=== PATIENT | male | born 1990 | race Caucasian/White ===

== ENCOUNTER 2019-03-20 17:51 | Emergency (ER) | payer OTHER ==
--- NOTE | 2019-03-20 19:47 | EDPHY ---
H & P Time Seen by Provider: 03/20/19 19:17 HPI/ROS: CHIEF COMPLAINT: Left knee pain HISTORY OF PRESENT ILLNESS: Patient is a 28-year-old male presents emergency department left knee pain. Patient was snowboarding on Wednesday when he fell. He significantly twisted his left knee. This torqued his lower leg. He now has moderate pain in his knee and over his tibia. He is able to ambulate but with discomfort. He has no numbness or tingling. REVIEW OF SYSTEMS: 10 systems were reveiwed and are negative with the exception of the elements mentioned in the history of present illness. Past Medical/Surgical History: Noncontributory Smoking Status: Never smoked Physical Exam: Vitals noted General Appearance: Alert and no distress. Head: Pupils equal. Normal. Respiratory: No respiratory distress. Cardiac: regular rate and rhythm. Extremities: Patient has no significant swelling of his left knee. There is tenderness to palpation over his left patella and medial knee. The ligaments are stable. The patient also has tenderness palpation over his anterior tibia. Neurovascular intact distally Skin: No rashes or lesions. Neuro: Alert. Normal mood and affect. Constitutional: Initial Vital Signs Temperature (C) 36.8 C 03/20/19 18:08 Heart Rate 88 03/20/19 18:08 Respiratory Rate 18 03/20/19 18:08 Blood Pressure 148/81 H 03/20/19 18:08 O2 Sat (%) 98 03/20/19 18:08 O2 Delivery Mode Room Air Allergies/Adverse Reactions: sulfamethoxazole [From Septra] Allergy (Verified 03/20/19 18:08) trimethoprim [From Septra] Allergy (Verified 03/20/19 18:08) Medical Decision Making ED Course/Re-evaluation: In the emergency department I discussed possible etiologies with the patient. I answered all his questions. X-ray of left knee and tib-fib were ordered. Knee x-ray: Please refer the dictated report. No acute disease noted. Tib-fib x-ray: Please refer the dictated report. No acute disease noted. I discussed results with the patient. I answered all his questions. Patient was given a knee immobilizer. He felt his no his knee may give out. He is given crutches. He was given follow-up with Dr. Marino from Orthopedics. He was given warnings prior to leaving. Departure - Departure Disposition: Home, Routine, Self-Care Clinical Impression: Knee sprain Qualifiers: Encounter type: initial encounter Involved ligament of knee: unspecified ligament Laterality: left Qualified Code(s): S83.92XA - Sprain of unspecified site of left knee, initial encounter Condition: Fair Instructions: Knee Sprain (ED) Additional Instructions: Keep your splint in place. Use crutches as needed. Return with increasing pain , numbness, weakness or any other concerns. Call Orthopedics to make a follow- up appointment. Referrals: Saira Marino MD [Medical Doctor] - 5-7 days, call for appt.
[2019-03-20 21:24] VITALS: BP 143/94
== END 2019-03-20 21:22 | disposition home or self-care (01) ==
DX: S83.92XA Sprain of unspecified site of left knee, initial encounter (principal); V00.311A Fall from snowboard, initial encounter; Y93.23 Activity, snow (alpine) (downhill) skiing, snowboarding, sledding, tobogganing and snow tubing
CPT/HCPCS: L1830